=== PATIENT | male | born 2000 | race African-American/Black ===

== ENCOUNTER 2019-12-16 02:28 | Emergency (ER) | payer OTHER ==
[~2019-12-16] VITALS: Ht 165.1 cm; Wt 82.6 kg
[2019-12-16] MEDS ORDERED: IBUPROFEN 600600 M1 PO (04:29)
[2019-12-16 04:53] VITALS: BP 116/80
== END 2019-12-16 04:59 | disposition home or self-care (01) ==
LOC: ER 02:28
DX: S16.1XXA Strain of muscle, fascia and tendon at neck level, initial encounter (principal); R51 Headache; R42 Dizziness and giddiness; V89.2XXA Person injured in unspecified motor-vehicle accident, traffic, initial encounter; Y93.89 Activity, other specified; Y92.488 Other paved roadways as the place of occurrence of the external cause; Y99.8 Other external cause status